=== PATIENT | male | born 1980 | race Caucasian/White ===

== ENCOUNTER 2017-07-08 11:54 | Emergency (ER) | payer BC ==
[2017-07-08] MEDS ORDERED: HYDROcodone/APAP 5-325MG 1 EACH TAB PO STA (12:40)
[2017-07-08] MEDS ORDERED: ORPHENADRINE 30 MG/ML 2 ML VIAL IM STA (12:40)
--- NOTE | 2017-07-08 12:52 | ED ---
Back Pain HPI - General Chief Complaint: Back Pain/Injury Stated Complaint: Back pain Time Seen by Provider: 07/08/17 12:29 Source: patient, RN notes reviewed Limitations: no limitations - History of Present Illness Initial Comments: 37-year-old male presents emergency Department chief complaint of low back pain. Patient states started earlier this morning. Patient states he got home from work around 2 AM states he sat down to eat states he went to get up with a little twinge in the any worsened after he twisted. Patient denies a ball, bladder incontinence or retention. Denies any saddle anesthesias or lower extremity paresthesias. Patient has no abdominal pain. See the pain is much better at rest worse with any movement especially twisting. states he took some Advil last night which minimally helped states pain was worsened today so he was concerned. - Related Data Home Medications Medication Instructions Recorded Confirmed Ibuprofen [Advil] 200 - 400 mg PO Q6H PRN 07/08/17 07/08/17 Previous Rx's Medication Instructions Recorded Cyclobenzaprine [Flexeril] 10 mg PO TID PRN #15 tab 07/08/17 Hydrocodone/Acetaminophen [[place] 1 tab PO Q6HR PRN #20 tab 07/08/17 5-325] Allergies Allergy/AdvReac Type Severity Reaction Status Date / Time No Known Allergies Allergy Verified 07/08/17 12:28 Review of Systems ROS Statement: Those systems with pertinent positive or pertinent negative responses have been documented in the HPI. ROS Other: All systems not noted in ROS Statement are negative. Past Medical History Past Medical History: No Reported History History of Any Multi-Drug Resistant Organisms: None Reported Past Surgical History: Appendectomy, Hernia Repair, Tonsillectomy Past Psychological History: No Psychological Hx Reported Smoking Status: Never smoker Past Alcohol Use History: Occasional Past Drug Use History: None Reported General Exam Limitations: no limitations General appearance: alert, in no apparent distress Head exam: Present: atraumatic, normocephalic, normal inspection Respiratory exam: Present: normal lung sounds bilaterally. Absent: respiratory distress, wheezes, rales, rhonchi, stridor Cardiovascular Exam: Present: regular rate, normal rhythm, normal heart sounds. Absent: systolic murmur, diastolic murmur, rubs, gallop, clicks GI/Abdominal exam: Present: soft, normal bowel sounds. Absent: distended, tenderness, guarding, rebound, rigid Back exam: Present: full ROM (With mild to moderate discomfort), tenderness ( Tenderness along the lumbar paraspinal in the left), paraspinal tenderness. Absent: CVA tenderness (R), CVA tenderness (L), vertebral tenderness Neurological exam: Present: alert, oriented X3, CN II-XII intact, reflexes normal. Absent: motor sensory deficit Skin exam: Present: warm, dry, intact, normal color. Absent: rash Course Vital Signs 07/08/17 12:14 Temperature 97.4 F L Pulse Rate 83 Respiratory 18 Rate Blood Pressure 124/84 O2 Sat by Pulse 96 Oximetry Medical Decision Making - Medical Decision Making 37-year-old male present emergency dept for low back pain. Patient has reproducible tenderness is lumbar paraspinal. Patient has no red flag symptoms and has a normal exam. Patient x-ray does not show an acute abnormality. Patient has no abdominal tenderness. Patient has a lumbar strain with muscle spasms. This is reported to injury. Patient will follow-up with PCP on Monday return parameters were discussed. Disposition Clinical Impression: Strain of lumbar region Disposition: HOME SELF-CARE Condition: Stable Instructions: Acute Low Back Pain (ED) Additional Instructions: Please return to the Emergency Department if symptoms worsen or any other concerns. Prescriptions: Cyclobenzaprine [Flexeril] 10 mg PO TID PRN #15 tab PRN Reason: Muscle Spasm Hydrocodone/Acetaminophen [[place] 5-325] 1 tab PO Q6HR PRN #20 tab PRN Reason: Pain Referrals: None,Stated [Primary Care Provider] - 1-2 days Time of Disposition: 13:56
--- NOTE | 2017-07-08 13:53 | XR ---
EXAMINATION TYPE: XR lumbar spine 2 or 3V DATE OF EXAM: 07/08/2017 CLINICAL HISTORY: pain TECHNIQUE: Three views of the lumbar spine are submitted. COMPARISON: None. FINDINGS: There are 5 lumbar type vertebral bodies identified. The lumbar spine shows satisfactory alignment w ithout evidence of acute fracture or dislocation. Vertebral body heights are within normal limits. Mild degenerative change at L5-S1. The overlying soft tissue appears unremarkable. IMPRESSION: No acute fracture or dislocation is seen in the lumbar spine. ICD 10 NO FRACTURE, INITIAL EVALUATION
[2017-07-08 14:19] VITALS: BP 137/92; PULSE 86; RESP 16; TEMP 97
== END 2017-07-08 14:19 | disposition home or self-care (01) ==
LOC: EC 11:54
DX: S39.012A Strain of muscle, fascia and tendon of lower back, initial encounter (principal)
CPT/HCPCS: 72100; 99283; 96372; J2360

== ENCOUNTER → 2020-11-04 | Outpatient (CLI) | payer BC ==
--- NOTE | 2020-11-04 15:43 | CONS ---
CONSULTATION DATE OF SERVICE: 11/04/2020 This 40-year-old gentleman has been evaluated in the sleep center for possible obstructive sleep apnea-hypopnea syndrome. HISTORY OF PRESENT ILLNESS/SLEEP-WAKE EVALUATION: Patient usual sleep schedule on weekdays from 10 to 11:30 p.m. until 6 a.m. and on weekends from 11 to 2 a.m. until 8 to 9 a.m. No problems with falling asleep. No TV in bedroom. The patient sleeps in different in positions. According to his , he has loud snoring and he wakes up from sleep once with nocturia. Positive history of acid reflux during the night. No history of hypnagogic hallucinations, sleep paralysis or cataplexy. [place] Sleepiness Scale is 6. PAST MEDICAL HISTORY: Positive for acid reflux. PAST SURGICAL HISTORY: Tonsillectomy, appendectomy, vasectomy, hernia repair. MEDICATIONS: None at the present time. Sometimes out of the counter medications for the headache and acid reflux. Multivitamins. SOCIAL HISTORY: Negative for smoking. Alcohol consumption occasional. FAMILY HISTORY: Positive for COPD by mom. Cancer by mom and dad. REVIEW OF SYSTEMS: Awakenings from sleep, snoring. PHYSICAL EXAMINATION: GENERAL: gentleman without distress. VITAL SIGNS: BP 147/87, HR 91, RR 15, height 6 feet and 2 inches, weight 287.8, temperature 98.9, oxygen saturation at room air 97%. HEENT: PERRLA, EOMI. Oropharynx low position of soft palate, Mallampati 3-4. NECK: Supple, no JVD. Thyroid is not palpable. LUNGS: Clear to percussion and to auscultation. Good air exchange. No wheezing or rhonchi. HEART: S1, S2 regular. No murmurs, gallops, or rubs. ABDOMEN: Obese. EXTREMITIES: No clubbing or cyanosis. FASHION MARKETER: Awake, alert, and oriented X3. Cranial nerves 2 to 7 intact. There is no fasciculation or atrophy. noted. No focal deficits observed. IMPRESSION: 1. Loud snoring, awakenings from sleep, small oropharyngeal air space, obstructive sleep apnea-hypopnea syndrome. 2. Obesity, body mass index 36.8. 3. Acid reflux. 4. Status post tonsillectomy. 5. Status post appendectomy. 6. Status post vasectomy. 7. Status post hernia repair. PLAN: 1. Home sleep apnea test for evaluation of patient breathing during sleep. 2. CPAP/BiPAP titration if sleep study confirms obstructive sleep apnea-hypopnea syndrome. 3. Preferable position during sleep on the side. 4. No driving if patient feels any sleepiness. 5. I will see patient for follow up visit to explain results of testing and following plan. Thank you very much for referring this patient for consultation. Sincerely, Ricardo Laureano MD, PhD, FAASM Diplomat of [employer] [place] [employer] of [employer] Medicine [place] Crane Operator of [facility] [place] MMODL / IJN: [id number] /
== END | disposition home or self-care (01) ==
LOC: SLEEP 13:03
PROVIDERS: ATTEND Internal Medicine
DX: G47.33 Obstructive sleep apnea (adult) (pediatric) (principal); K21.9 Gastro-esophageal reflux disease without esophagitis; E66.9 Obesity, unspecified; Z68.36 Body mass index [BMI] 36.0-36.9, adult; Z98.890 Other specified postprocedural states; Z98.52 Vasectomy status; Z90.49 Acquired absence of other specified parts of digestive tract
CPT/HCPCS: 99211

== ENCOUNTER → 2021-01-27 | Outpatient (CLI) | payer BC ==
--- NOTE | 2021-01-27 21:55 | SFUN ---
SLEEP CENTER FOLLOW UP NOTE DATE OF SERVICE: 01/27/2021 This 80-year-old gentleman has been followed in Sleep Center for treatment of obstructive sleep apnea-hypopnea syndrome. Recently the patient had a home sleep apnea test which showed moderate obstructive sleep apnea. I discussed results of the sleep study with the patient, including the explanation that a home sleep apnea test may underestimate the severity of his sleep apnea syndrome. The patient was started on treatment with AutoPAP, and today is his first visit after starting treatment with AutoPAP. According to his , he does not snore any more. He sleeps better. [place] Sleepiness Scale today is zero. I checked his CPAP unit. Range of the pressure is 5 to 15 with average pressure 13.8. Usage is 30/30 nights for more than 4 hours. Average usage is 6.3 hours per night. Leak is only 2 L/minute, which is normal. Apnea-hypopnea index is 2.6, which is perfect. MEDICATIONS: Zdnf-[id number]-mghtflu medication for headaches and acid reflux as needed. PHYSICAL EXAMINATION: GENERAL: A pleasant patient in no distress. VITAL SIGNS: BP 142/87, HR 67, RR 15, weight 280.8, temperature 98.4. Oxygen saturation at room air 97%. HEENT: PERRLA, EOMI. Evaluation of oropharynx showed tongue protrudes midline. Low position of soft palate. Mallampati III to IV. NECK: Supple. No JVD. Thyroid is not palpable. LUNGS: Clear to percussion and to auscultation. Good air exchange. No wheezing or rhonchi. HEART: S1, S2 regular. No murmurs, gallops or rubs. ABDOMEN: Soft and nontender. Bowel sounds are present. No organomegaly appreciated. EXTREMITIES: No clubbing or cyanosis. PLATE GRAINER: Awake, alert, and oriented X3. Cranial nerves 2 to 7 intact. There is no fasciculation or atrophy. noted. No focal deficits observed. IMPRESSION: 1. Moderate obstructive sleep apnea-hypopnea syndrome by results of home sleep apnea test. Apnea-hypopnea index 20.7 with oxygen desaturation to 85%. The patient demonstrated 100% compliance with treatment and is benefitting from treatment. 2. Obesity. 3. Acid reflux. 4. Status post tonsillectomy. 5. Status post appendectomy. 6. Status post vasectomy. 7. Status post hernia repair. PLAN: 1. Patient will continue to use PAP equipment every night for the whole night. 2. Sleep hygiene with regular time in bed for at least 7-1/2 to 8 hours. 3. Precautions related to driving. No driving if feeling sleepiness. 4. I will maintain all necessary prescription for PAP supplies including mask, tube, filters. 5. Watching weight. 6. Follow-up visit in 6 months or earlier if patient has any problems. Sincerely, Ricardo Laureano MD, PhD, FAASM Diplomat of [employer] Specialties [employer] Board of Internal Medicine Aquatic Centre Manager of [facility] [place] MMODL / IJN: [id number] /
== END | disposition home or self-care (01) ==
LOC: SLEEP 16:33
PROVIDERS: ATTEND Internal Medicine
DX: G47.33 Obstructive sleep apnea (adult) (pediatric) (principal); E66.9 Obesity, unspecified; K21.9 Gastro-esophageal reflux disease without esophagitis; Z99.89 Dependence on other enabling machines and devices; Z90.49 Acquired absence of other specified parts of digestive tract; Z98.52 Vasectomy status; Z90.89 Acquired absence of other organs

== ENCOUNTER → 2021-08-12 | Outpatient (CLI) | payer BC ==
--- NOTE | 2021-08-13 11:49 | SFUN ---
SLEEP CENTER FOLLOW UP NOTE DATE OF SERVICE: 08/12/2021 This 41-year-old gentleman has been followed in Sleep Center for treatment of obstructive sleep apnea-hypopnea syndrome. The patient successfully continues to use CPAP equipment. He does not snore with the machine. He is getting his supplies. He complains that he has some leak from the full- face mask, and this leak may disrupt his sleep. The patient already has been tried on different types of the full-face mask, including Dream Wear mask, which covers under the nose and covers the mouth. At present he is using an AirFit F20 large-sized ResMed full-face mask, which covers the nose from above and the mouth. [place] Sleepiness Scale today is 1, which is perfect. I checked his CPAP unit. Range of the pressure is 5 to 15, with average pressure 10.6. Usage is 30/30 nights, 18/30 nights for more than 4 hours, average 4.4 hours per night. Leak is 5 L/minute, which is in normal range. Apnea-hypopnea index is only 0.9, which is perfect. MEDICATIONS: Multivitamins and medications for acid reflux over the counter. PHYSICAL EXAMINATION: GENERAL: Pleasant patient in no distress. VITAL SIGNS: BP 143/92, HR 73, RR 15, height 6 feet 2 inches, weight 292.8, temperature 98.8, oxygen saturation at room air 97%. Body mass index 37.4. HEENT: PERRLA, EOMI, evaluation of oropharynx showed tongue protrudes midline. Low position of soft palate; Mallampati III to IV. NECK: Supple, no JVD. Thyroid is not palpable. LUNGS: Clear to percussion and to auscultation. Good air exchange. No wheezing or rhonchi. HEART: S1, S2 regular. No murmurs, gallops, or rubs. ABDOMEN: Slightly obese. EXTREMITIES: No clubbing or cyanosis. MIDDLEWARE SOLUTIONS ARCHITECT: Awake, alert, and oriented X3. Cranial nerves 2 to 7 intact. There is no fasciculation or atrophy. noted. No focal deficits observed. IMPRESSION: 1. Moderate obstructive sleep apnea-hypopnea syndrome. Patient demonstrated good compliance with treatment. Normal respiration on CPAP. He is using a full-face mask and feels a slight leak from the mask. 2. Obesity. 3. Acid reflux. 4. Status post tonsillectomy. 5. Status post appendectomy. 6. Status post vasectomy. 7. Status post hernia repair. PLAN: 1. Patient will try a Simplus full-face mask, large size, Luna and Paykel. 2. Patient will continue to use PAP equipment every night for the whole night. 3. Sleep hygiene with regular time in bed for at least 7-1/2 to 8 hours. 4. Precautions related to driving. No driving if feeling sleepiness. 5. I will maintain all necessary prescription for PAP supplies including mask, tube, filters. 6. Watching weight. 7. Follow-up visit in 6 months or earlier if patient has any problems. Thank you very much for allowing me to participate in the management of your patient. Sincerely, Ricardo Laureano MD, PhD, FAASM Diplomat of [place] [employer] Specialties Sleep Medicine Board of [place] Board of Internal Medicine Etl Database Developer of [facility] [place] [email or web address] / CALEBN: [id number] /
== END ==
LOC: SLEEP 16:11
PROVIDERS: ATTEND Internal Medicine
DX: G47.33 Obstructive sleep apnea (adult) (pediatric) (principal); E66.9 Obesity, unspecified; K21.9 Gastro-esophageal reflux disease without esophagitis; Z90.09 Acquired absence of other part of head and neck; Z90.49 Acquired absence of other specified parts of digestive tract; Z98.890 Other specified postprocedural states; Z98.52 Vasectomy status; Z99.89 Dependence on other enabling machines and devices; Z68.37 Body mass index [BMI] 37.0-37.9, adult; Z79.899 Other long term (current) drug therapy

== ENCOUNTER → 2022-02-03 | Outpatient (CLI) | payer BC ==
--- NOTE | 2022-02-03 18:41 | SFUN ---
SLEEP CENTER FOLLOW UP NOTE DATE OF SERVICE: 02/03/2022 This 41-year-old gentleman has been followed in Sleep Center for treatment of obstructive sleep apnea-hypopnea syndrome. The patient continues to use his CPAP equipment every night. He sleeps well with the machine and is getting his CPAP supplies on time. [place] Sleepiness Scale today is 1, which is absolutely normal. I checked his CPAP unit. Range of the pressure is 5 to 15, average pressure 10.9. Usage is 30/30 nights and 23/30 nights for more than 4 hours, average 5.6 hours per night. Leak is 2 L/minute, which is normal. Apnea-hypopnea index is 0.5, which is normal. MEDICATIONS: Medications for acid reflux over the counter. Multivitamins. PHYSICAL EXAMINATION: GENERAL: Pleasant patient in no distress. VITAL SIGNS: BP 137/94, HR 101, RR 16, weight 289.0, temperature 97.5, oxygen saturation at room air 98%. HEENT: PERRLA, EOMI, evaluation of oropharynx showed tongue protrudes midline. Low position of soft palate; Mallampati III to IV. NECK: Supple, no JVD. Thyroid is not palpable. LUNGS: Clear to percussion and to auscultation. Good air exchange. No wheezing or rhonchi. HEART: S1, S2 regular. No murmurs, gallops, or rubs. ABDOMEN: Soft and nontender. Bowel sounds are present. No organomegaly appreciated. EXTREMITIES: No clubbing or cyanosis. COURT ADVOCATE: Awake, alert, and oriented X3. Cranial nerves 2 to 7 intact. There is no fasciculation or atrophy. noted. No focal deficits observed. IMPRESSION: 1. Moderate obstructive sleep apnea-hypopnea syndrome. Patient demonstrated great compliance with treatment, benefitting from treatment. Normal respiration on CPAP. 2. Obesity. 3. Acid reflux. 4. Status post tonsillectomy. 5. Status post appendectomy. 6. Status post vasectomy. 7. Status post hernia repair. PLAN: 1. I discussed with the patient the position of the machine. At present his machine is staying higher than his head, which is not correct. It should stay lower. Position of the tube should be directly from the mask to the machine without any . 2. Patient will continue to use PAP equipment every night for the whole night. 3. Sleep hygiene with regular time in bed for at least 7-1/2 to 8 hours. 4. Precautions related to driving. No driving if feeling sleepiness. 5. I will maintain all necessary prescription for PAP supplies including mask, tube, filters. 6. Watching weight. 7. Follow-up visit in 6 months or earlier if patient has any problems. Thank you very much for allowing me to participate in the management of your patient. Sincerely, Ricardo Laureano MD, PhD, FAASM Diplomat of [employer] Specialties Sleep Medicine Board of [place] Board of Internal Medicine Behavioral Consultant of [facility] [place] MMODL / IJN: [id number] /
== END ==
LOC: SLEEP 16:17
PROVIDERS: ATTEND Internal Medicine
DX: G47.33 Obstructive sleep apnea (adult) (pediatric) (principal); E66.9 Obesity, unspecified; Z99.89 Dependence on other enabling machines and devices; K21.9 Gastro-esophageal reflux disease without esophagitis; Z90.09 Acquired absence of other part of head and neck; Z90.49 Acquired absence of other specified parts of digestive tract; Z98.890 Other specified postprocedural states; Z98.52 Vasectomy status

== ENCOUNTER → 2023-02-02 | Outpatient (CLI) | payer BC ==
--- NOTE | 2023-02-02 17:15 | P.PN ---
Subjective DATE: 02/02/2023 FOLLOW UP VISIT. Patient with obstructive sleep apnea hypopnea syndrome return to sleep center for follow-up visit. Information from previous visit have been reviewed. Patient is using PAP equipment every night for the whole night, getting PAP supplies in time. Patient has episodes of snoring while using his CPAP eq uipment. The patient does not have significant problems with the mask, PAP unit and humidification. [place] sleepiness scale is 1, which is perfect. I checked information from PAP unit. PAP unit pressure 5-15, average 10.5 cm H2O. Usage is 99% and 41 % for more then 4 hours, average about 4 hours per night. Leak is 10.3 l/m, which is in acceptable range. Apnea Hypopnea Index is 1.3, which is normal. MEDICATIONS: None During physical exam: GENERAL: A pleasant patient without any distress. VITAL SIGNS: BP 149/94, HR 111, RR 12 , weight 290, temperature 98.1, oxygen saturation at room air 97 % . HEENT: PERRLA, EOMI.low position of soft palate, Mallapati 3-4, significant retrognathia . NECK: Supple. No JVD. LUNGS: Clear to percussion and to auscultation. Good air exchange. No wheezing or rhonchi. HEART: S1, S2 regular. ABDOMEN: Soft and nontender.[] EXTREMITIES: No clubbing or cyanosis. FULLING MACHINE OPERATOR: Awake, alert, and oriented x3. No focal deficit. Impressions: 1. Obstructive sleep apnea-hypopnea syndrome. Patient demonstrated borderline compliance with treatment, benefiting from treatment. 2. Obesity, body mass index 37.2. 3. Acid reflux. 4. Status post tonsillectomy. 5. Status post appendectomy. 6. Status post was ectomy. 7. Status post hernia repair. Plan: 1. Continue using PAP equipment every night for the whole night. I changed pre ssure in CPAP unit to the range from 6-18 cm of water with the goal to stop snoring. 2. To change air filter at least 1-2 times per month. 3. PAP unit should stay lower then position of the head. 4. Advised patient to remove all remaining water from humidifier canister daily and make it dry after each usage. Refill canister with fresh distilled water before each usage. 5. Sleep hygiene with regular time in bed for at least 8 hours. 6. Precautions related to driving. No driving if feel any sleepiness. 7. I will maintain prescription for PAP supplies including mask, tube, filters. 8. Watching and losing weight. 9. Follow up visit in 6 months or earlier if patient has any problems. Thank you very much for allowing me to participate in the management of your patient. Ricardo Laureano MD, PhD, FAASM. Diplomat of [place] Board of Sleep Medicine, Sleep Medicine Board by [employer] Board of Internal Medicine Power System Operator of [facility] [place]
== END ==
LOC: SLEEP 16:10
PROVIDERS: ATTEND Internal Medicine
DX: G47.33 Obstructive sleep apnea (adult) (pediatric) (principal); E66.9 Obesity, unspecified; Z68.37 Body mass index [BMI] 37.0-37.9, adult; K21.9 Gastro-esophageal reflux disease without esophagitis; Z90.49 Acquired absence of other specified parts of digestive tract; Z98.890 Other specified postprocedural states; Z99.89 Dependence on other enabling machines and devices
CPT/HCPCS: 99212

== ENCOUNTER → 2024-01-25 | Outpatient (CLI) | payer BC ==
--- NOTE | 2024-01-25 17:05 | P.PN ---
Subjective DATE: 01/25/2024 FOLLOW UP VISIT. Patient with obstructive sleep apnea hypopnea syndrome return to sleep center for follow-up visit. Information from previous visit have been reviewed. Patient is using PAP equipment every night for the whole night, getting PAP supplies in time. Patient is using fullface mask Simplus and sometimes because leak to the eyes area. [place] sleepiness scale is, which is perfect 2. I checked information from PAP unit. PAP unit pressure 6-13, average 11.4 cm H2O. Usage is 93% and 57% for more then 4 hours, average 4.5 hours per night. Leak is 19.8 l/m, which is in acceptable range. Apnea Hypopnea Index is 1.1, which is normal. MEDICATIONS:1. Lisinopril 10 mg once a day 2. Omeprazole 20 mg once a day During physical exam: GENERAL: A pleasant patient without any distress. VITAL SIGNS: Please see below. HEENT: PERRLA, EOMI.low position of soft palate, Mallapati 34. NECK: Supple. No JVD. LUNGS: Clear to percussion and to auscultation. Good air exchange. No wheezing or rhonchi. HEART: S1, S2 regular. ABDOMEN: Soft and nontender. Obese EXTREMITIES: No clubbing or cyanosis. UROLOGY PHYSICIAN ASSISTANT: Awake, alert, and oriented x3. No focal deficit. Impressions: 1. Obstructive sleep apnea-hypopnea syndrome. Patient demonstrated good compliance with treatment, benefiting from treatment. 2. Obesity, BMI 38.6, patient increased weight on 6 pounds comparing with previous visit. 3. Acid reflux. 4. Status post vasectomy. 5. Status post tonsillectomy. 6. Status post hernia repair. Plan: 1. Continue using PAP equipment every night for the whole night. 2. To change air filter at least 1-2 times per month. 3. PAP unit should stay lower then position of the head. 4. Advised patient to remove all remaining water from humidifier canister daily and make it dry after each usage. Refill canister with fresh distilled water before each usage. 5. Sleep hygiene with regular time in bed for at least 8 hours. 6. Precautions related to driving. No driving if feel any sleepiness. 7. I will maintain prescription for PAP supplies including mask, tube, filters. Consider to try Kristy view fullface mask which goes under the nose. 8. Follow up visit in 6 months or earlier if patient has any problems. 9. Watching and losing weight. Thank you very much for allowing me to participate in the management of your patient. Ricardo Laureano MD, PhD, FAASM. Diplomat of [place] Board [employer] Sleep Medicine, Sleep Medicine Board by [place] Board of Internal Medicine Distribution Systems Serviceperson of [facility] [place] cc: Joaquín Cabrera MD
== END ==
LOC: 3 N SLEEP 16:09
PROVIDERS: ATTEND Internal Medicine
DX: G47.33 Obstructive sleep apnea (adult) (pediatric) (principal); E66.9 Obesity, unspecified; K21.9 Gastro-esophageal reflux disease without esophagitis; Z98.52 Vasectomy status; Z98.890 Other specified postprocedural states; Z90.49 Acquired absence of other specified parts of digestive tract; Z90.89 Acquired absence of other organs; Z99.89 Dependence on other enabling machines and devices; Z68.38 Body mass index [BMI] 38.0-38.9, adult

== ENCOUNTER → 2025-01-23 | Outpatient (CLI) | payer BC ==
[2025-01-23 16:49] VITALS: BP 133/91; PULSE 94; RESP 20; TEMP 98.5
--- NOTE | 2025-01-23 17:23 | P.PROGSL ---
Subjective DATE: 01/23/2025 FOLLOW UP VISIT. Patient with obstructive sleep apnea hypopnea syndrome return to sleep center for follow-up visit. Information from previous visit have been reviewed. Patient is using PAP equipment every night for the whole night, getting PAP supplies in time. The patient has problems related to the mask, because it has leak from the chin area. [place] sleepiness scale is 0. I checked information from PAP unit. PAP unit pressure 6-15, average 9.4 cm H2O. Usage is 60% for more then 4 hours, average 2 hours per night. Leak is 6 l/m, which is in acceptable range. Apnea Hypopnea Index is 0.8, which is normal. MEDICATIONS have been reviewed, please see below. During physical exam: GENERAL: A pleasant patient without any distress. VITAL SIGNS: Please see below, weight is 294.6 lbs. HEENT: PERRLA, EOMI.low position of soft palate, Mall[place]ati 34. NECK: Supple. No JVD. LUNGS: Clear to percussion and to auscultation. Good air exchange. No wheezing or rhonchi. HEART: S1, S2 regular. ABDOMEN: Soft and nontender.[] EXTREMITIES: No clubbing or cyanosis. SPECIAL INVESTIGATION UNIT INVESTIGATOR: Awake, alert, and oriented x3. No focal deficit. I changed the regimen of pressure in AutoPap unit to the range 6-11 cm of water. We gave patient a different style fullface mask. Impressions: 1. Obstructive sleep apnea-hypopnea syndrome. Patient has difficulties with usage of CPAP secondary to mask fitting and pressure. 2. Obesity, BMI 37.7. 3. Acid reflux. 4. Status post vasectomy. 5. Status post hernia repair. 6. Status post tonsillectomy. Plan: 1. Continue using PAP equipment every night for the whole night. 2. Sleep hygiene with regular time in bed for at least 7.5-8 hours 3. PAP unit should stay lower then position of the head. 4. Advised patient to remove all remaining water from humidifier canister daily and make it dry after each usage. Refill canister with fresh distilled water before each usage. 5. Watching and losing weight. 6. Precautions related to driving. No driving if feel any sleepiness. 7. I will maintain prescription for PAP supplies including mask, tube, filters. 8. Follow up visit in 4 months or earlier if patient has any problems. Thank you very much for allowing me to participate in the management of your patient. Ricardo Laureano MD, PhD, FAASM. Diplomat of [employer], Sleep Medicine Board by [employer] Att[employer] [facility] [place] Objective - Vital Signs Vital Signs: Vital Signs Temp 98.5 F 01/23/25 16:49 Pulse 94 01/23/25 16:49 Resp 20 01/23/25 16:49 BP 133/91 01/23/25 16:49 Pulse Ox 98 01/23/25 16:49 FiO2 Intake & Output 01/22/25 01/23/25 01/23/25 18:59 06:59 18:59 Weight 133.526 kg Home Medications: Home Medications Medication Instructions Recorded Confirmed Type Cyclobenzaprine [Flexeril] 10 mg PO TID PRN #15 tab 07/08/17 Rx Hydrocodone/Acetaminophen [Planada 1 tab PO Q6HR PRN #20 tab 07/08/17 Rx 5-325] Ibuprofen [Advil] 200 - 400 mg PO Q6H PRN 07/08/17 07/08/17 History lisinopriL [Prinivil] 10 mg PO DAILY 01/23/25 01/23/25 History
== END ==
LOC: 3 N SLEEP 16:26
PROVIDERS: ATTEND Internal Medicine
DX: G47.33 Obstructive sleep apnea (adult) (pediatric) (principal); E66.01 Morbid (severe) obesity due to excess calories; K21.9 Gastro-esophageal reflux disease without esophagitis; Z68.37 Body mass index [BMI] 37.0-37.9, adult; Z90.89 Acquired absence of other organs; Z98.52 Vasectomy status; Z98.890 Other specified postprocedural states
CPT/HCPCS: 99212